=== PATIENT | male | born 1965 | race Caucasian/White ===

== ENCOUNTER → 2018-12-04 | Outpatient (CLI) | payer OTHER ==
--- NOTE | 2018-12-04 18:38 | PCVCIMAG ---
EXAM: DUPLEX ULTRASOUND OF THE RIGHT GROIN INDICATION: Groin swelling and pain. FINDINGS: No pseudoaneurysm is present. The common femoral artery and vein are patent. No arteriovenous fistula is seen. IMPRESSION: Study is negative for pseudoaneurysm. Note is made of a 1.1 x 1.9 x 2.8 cm subcutaneous hematoma. Incidental note is made of thrombus in the upper great saphenous vein consistent with superficial thrombosis. No deep venous thrombus is seen. Results reviewed with Dr. Mendiola. Interval follow-up in 1-2 months is recommended. LOC:[id number]
== END | disposition home or self-care (01) ==
LOC: PCVCIMAG 10:53
PROVIDERS: ATTEND Internal Medicine Cardiovascular Disease
DX: R10.31 Right lower quadrant pain (principal); R19.09 Other intra-abdominal and pelvic swelling, mass and lump; G89.18 Other acute postprocedural pain; T14.8XXA Other injury of unspecified body region, initial encounter; X58.XXXA Exposure to other specified factors, initial encounter; Y93.89 Activity, other specified; Y92.89 Other specified places as the place of occurrence of the external cause; Y99.8 Other external cause status
CPT/HCPCS: 93926

== ENCOUNTER → 2018-12-22 | Outpatient (CLI) | payer OTHER ==
--- NOTE | 2018-12-22 14:04 | PCVCIMAG ---
EXAM: BILATERAL CAROTID DUPLEX INDICATION: Carotid Occlusive Disease. FINDINGS: Doppler Measurements (centimeters per second): RIGHT: Peak CCA-94, Peak ECA-111, Diastolic ICA-17, Peak ICA-64, ICA/CCA Ratio-0.7. LEFT: Peak CCA-100, Peak ECA-94, Diastolic ICA-22, Peak ICA-75, ICA/CCA Ratio-0.8. RIGHT CAROTID: The carotid bulb has minimal plaque. The proximal internal carotid artery shows no significant stenosis. The common carotid artery shows no significant stenosis. The external carotid artery shows no significant stenosis. LEFT CAROTID: The carotid bulb has minimal plaque. The proximal internal carotid artery shows no significant stenosis. The common carotid artery shows no significant stenosis. The external carotid artery shows no significant stenosis. Antegrade flow in both vertebral arteries. IMPRESSION: No significant stenosis of the right internal carotid artery with minimal plaque. No significant stenosis of the left internal carotid artery with minimal plaque. LOC:[place] [id number]
--- NOTE | 2018-12-22 14:08 | PCVCIMAG ---
EXAM: VENOUS DUPLEX RIGHT LOWER EXTREMITY INDICATION: Leg pain and swelling. FINDINGS: Right leg: No thrombus in the common femoral, main femoral, or popliteal veins. These veins are compressible with phasic flow. Calf veins are unremarkable where seen. Previous thrombus upper right great saphenous vein has resolved since November 2018. IMPRESSION: No evidence of deep venous thrombosis in right lower extremity as detailed above. Resolution of previous right great saphenous vein thrombus. LOC:[id number]
== END | disposition home or self-care (01) ==
LOC: PCVCIMAG 13:00
PROVIDERS: ATTEND Internal Medicine Cardiovascular Disease
DX: Z01.818 Encounter for other preprocedural examination (principal); I65.23 Occlusion and stenosis of bilateral carotid arteries; M79.604 Pain in right leg; M79.89 Other specified soft tissue disorders; R09.89 Other specified symptoms and signs involving the circulatory and respiratory systems; R10.31 Right lower quadrant pain; R19.09 Other intra-abdominal and pelvic swelling, mass and lump; I82.811 Embolism and thrombosis of superficial veins of right lower extremity
CPT/HCPCS: 93880; 93971

== ENCOUNTER → 2019-06-08 | Outpatient (CLI) | payer OTHER ==
--- NOTE | 2019-06-08 16:50 | PCVCIMAG ---
APPROVED REPORT Study performed: 06/08/2019 13:59:03 Exam: Stress Echocardiogram Indication: CAD s/p CABG, CAD s/p PCI Patient Location: Echo lab Stress Nurse: Maria Del Carmen Griffin RN Status: routine Ht: 5 ft 11 in HR: 68 bpm BP: 132/78 mmHg Rhythm: NSR Procedure The patient underwent an Exercise Stress Test using the Naveed Protocol. Blood pressure, heart rate, and EKG were monitored. An Echocardiogram was performed by geochemical laboratory technician in four stages in quad fashion. At peak stress, four selected images were obtained and placed side by side with resting images for comparison. Stress Test Details Stress Test: Exercise stress testing was performed using a Naveed protocol. HR Resting HR: 68 bpmMax Heart Rate (APMHR): 166 bpm Max HR Achieved: 153 bpmTarget HR (85% APMHR): 141 bpm % of APMHR: 92 Recovery HR: 93 bpm HR response to stress: Normal HR response to stress BP Resting BP: 132/78 mmHg Max BP: 198/86 mmHg Recovery BP: 154/80 mmHg BP response to stress: Normal blood pressure response to stress. ECG Resting ECG: Sinus Rhythm Stress ECG: Sinus Rhythm ST Change: Normal Arrhythmia: None Recovery ECG: Sinus Rhythm Recovery ST Change: Normal Recovery Arrhythmia: None Clinical Reason for Termination: Maximal effort Stress Symptoms: Dyspnea Exercise duration: 10 min 5 sec Highest Stage Achieved: Stage 4: 4.2 mph at 16% grade. Exercise capacity: 13.3 METs Overall Exercise Capacity for Age: Normal Scale: Active Angina Score: None Pre-Stress Echo The resting Echocardiogram showed normal left ventricular contractility with an estimated Ejection Fraction of about >55%. Normal wall motion in all segments on baseline images. Post-Stress Echo The stress Echocardiogram showed normal left ventricular contractility with an estimated Ejection Fraction of about 65%. Normal augmentation of wall motion in all segments on post stress images. Clinical No clinical or ECG evidence for ischemia. Conclusion Clinical Response: Non-ischemic Exercise Capacity: Average Stress ECG Response: Non-ischemic Stress Echo Images: Non-ischemic The left ventricle is normal in size and wall thickness in both the rest and stress images. Mild-moderate aortic insufficiency. Mild mitral regurgitation. Mild-moderate tricuspid regurgitation with PAP of 39 mmHg. No valvular stenosis and normal pulmonic valve. Other Information Study Quality: Adequate <Conclusion> The left ventricle is normal in size and wall thickness in both the rest and stress images. Mild-moderate aortic insufficiency. Mild mitral regurgitation. Mild-moderate tricuspid regurgitation with PAP of 39 mmHg. No valvular stenosis and normal pulmonic valve.
== END | disposition home or self-care (01) ==
LOC: PCVCIMAG 13:49
PROVIDERS: ATTEND Internal Medicine Cardiovascular Disease
DX: I08.3 Combined rheumatic disorders of mitral, aortic and tricuspid valves (principal); I10 Essential (primary) hypertension; Z95.1 Presence of aortocoronary bypass graft; Z88.0 Allergy status to penicillin
CPT/HCPCS: 93325; 93351